=== PATIENT | male | born 1950 | race Caucasian/White ===

== ENCOUNTER 2016-10-06 12:59 | Observation (INO) | payer MEDICARE ==
--- NOTE | 2016-10-06 13:34 | ED ---
General Adult HPI - General Chief complaint: Chest Pain Stated complaint: Chest Pain Time Seen by Provider: 10/06/16 13:08 Source: patient, RN notes reviewed, old records reviewed Mode of arrival: wheelchair Limitations: no limitations - History of Present Illness Initial comments: This is a 66-year-old male here for evaluation. Patient is presents today for evaluation of chest pain. Patient does have strong family history of heart disease concern for heart attack. Patient admits to some sweating but he states the room just feels hot. No significant shortness of breath this time. Patient has history of high cholesterol diabetes CAD and hypertension. Patient still complaining of chest pain at this time. Pain is continued, pressure and chest. Mild hand numbness bilaterally. Patient denies any other neurological complaints. - Related Data Allergies Allergy/AdvReac Type Severity Reaction Status Date / Time atorvastatin [From Lipitor] Allergy Unknown Verified 10/06/16 14:10 Review of Systems ROS Statement: Those systems with pertinent positive or pertinent negative responses have been documented in the HPI. ROS Other: All systems not noted in ROS Statement are negative. Past Medical History Past Medical History: Coronary Artery Disease (CAD), Diabetes Mellitus, Hypertension History of Any Multi-Drug Resistant Organisms: None Reported Past Surgical History: Coronary Bypass/CABG Additional Past Surgical History / Comment(s): right hand surg Past Psychological History: No Psychological Hx Reported Smoking Status: Former smoker Past Alcohol Use History: Occasional Past Drug Use History: None Reported General Exam Limitations: no limitations General appearance: alert, in no apparent distress, anxious Head exam: Present: atraumatic, normocephalic, normal inspection Eye exam: Present: normal appearance, PERRL, EOMI. Absent: scleral icterus, conjunctival injection, periorbital swelling ENT exam: Present: normal exam, mucous membranes moist Neck exam: Present: normal inspection. Absent: tenderness, meningismus, lymphadenopathy Respiratory exam: Present: normal lung sounds bilaterally. Absent: respiratory distress, wheezes, rales, rhonchi, stridor Cardiovascular Exam: Present: regular rate, normal rhythm, normal heart sounds. Absent: systolic murmur, diastolic murmur, rubs, gallop, clicks GI/Abdominal exam: Present: soft, normal bowel sounds. Absent: distended, tenderness, guarding, rebound, rigid Extremities exam: Present: normal inspection, full ROM, normal capillary refill. Absent: tenderness, pedal edema, joint swelling, calf tenderness Back exam: Present: normal inspection Neurological exam: Present: alert, oriented X3, CN II-XII intact Psychiatric exam: Present: normal affect, normal mood Skin exam: Present: warm, dry, intact, normal color. Absent: rash Course Vital Signs 10/06/16 13:07 Temperature 100.2 F H Pulse Rate 81 Respiratory 18 Rate Blood Pressure 161/75 O2 Sat by Pulse 98 Oximetry - Reevaluation(s) Reevaluation #1: 10/06/16 14:13 pt feeling better but still with chest pain EKG Findings - EKG Comments: EKG Findings:: EKG shows normal sinus or mastoid I, CA 202, QRS 110, QTc 440 Medical Decision Making - Medical Decision Making Physical male here for evaluation. History of family strong family history of heart disease, high blood pressure cholesterol remote smoking, patient does have chest pain today, so with pressure in his chest heaviness on his chest diaphoresis. Patient continua chest pain at this time. Patient EKG and troponin are negative, will be admitted for cardiac observation, anticoagulation - Radiology Data Radiology results: report reviewed (CXR is negative for acute disease), image reviewed Critical Care Time Critical Care Time: Yes Total Critical Care Time: 31 Disposition Clinical Impression: Chest pain Disposition: ADMITTED IP TO THIS HOSP Condition: Undetermined Instructions: Chest Pain (ED) Referrals: José Miguel Gordon DO [Primary Care Provider] - 1-2 days
[2016-10-06] MEDS ORDERED: HEPARIN SODIUM,PORCINE 5,000 UNIT/ML 1 ML VIAL IV PRN (14:11)
[2016-10-06] MEDS ORDERED: ACETAMINOPHEN TAB 500 MG TAB PO STA (14:11)
[2016-10-06] MEDS ORDERED: MORPHINE SULFATE 4 MG/ML SYRINGE IV PRN (14:11)
[2016-10-06] MEDS ORDERED: HEPARIN SODIUM,PORCINE 5,000 UNIT/ML 1 ML VIAL IV ONE (14:11)
[2016-10-06] MEDS ORDERED: IBUPROFEN 800 MG TAB PO STA (14:11)
[2016-10-06] MEDS ORDERED: NITROGLYCERIN SL TABS 0.4 MG TAB SUBLINGUAL PRN (14:11)
[2016-10-06] MEDS ORDERED: ASPIRIN 81 MG CHEW PO STA (14:11)
[2016-10-06 14:17] LABS: Basophils # (A) 0.1 k/uL (0-0.2); Basophils % (A) 1 %; CH 31.7; CHCM 34.6; Eosinophils # (A) 0.1 k/uL (0-0.7); Eosinophils % (A) 1 %; HCT 44.9 % (39.0-53.0); HGB 15.6 gm/dL (13.0-17.5); Luc % (Auto) 3; Lymphocytes # (A) 1.2 k/uL (1.0-4.8); Lymphocytes % (A) 17 %; MCH 31.8 pg (25.0-35.0); MCHC 34.6 g/dL (31.0-37.0); MCV 91.9 fL (80.0-100.0); Mean Platelet Volume 7.1; Monocytes # (A) 0.6 k/uL (0-1.0); Monocytes % (A) 8 %; Neutrophils # (A) 5.3 k/uL (1.3-7.7); Neutrophils % (A) 72 %; RBC 4.89 m/uL (4.30-5.90); RDW 13.1 % (11.5-15.5); WBC 7.4 k/uL (3.8-10.6); WBC (Perox) 7.03
[2016-10-06 14:29] LABS: ALT 31 U/L (21-72); AST 21 U/L (17-59); Alkaline Phosphatase 69 U/L (38-126); Anion Gap 15 mmol/L; Blood Urea Nitrogen 28 mg/dL (9-20); Calcium 9.3 mg/dL (8.4-10.2); Carbon Dioxide 26 mmol/L (22-30); Chloride 98 mmol/L (98-107); Glucose 137 mg/dL (74-99); Magnesium 1.3 mg/dL (1.6-2.3); Non-African American GFR(MDRD) 55 (>60 ml/min/1.73 sqM); Partial Thromboplastin Time 23.1 sec (22.0-30.0); Sodium 139 mmol/L (137-145); Total Bilirubin 0.7 mg/dL (0.2-1.3); Total Protein 7.5 g/dL (6.3-8.2)
[2016-10-06] MEDS: HEPARIN SODIUM,PORCINE/D5W PMX 25,000 UNIT in DEXTROSE/WATER 1 500ML.BAG IV SCH (14:32)
--- NOTE | 2016-10-06 14:34 | XR ---
EXAMINATION TYPE: XR chest 2V DATE OF EXAM: 10/06/2016 2:28 PM COMPARISON: Prior chest x-ray June 14, 2012. HISTORY: Chest pain and arm tingling and weakness today. TECHNIQUE: Frontal and lateral views of the chest are obtained. FINDINGS: Sternal wires and mediastinal clips are now present. There is no focal air space opacity, p leural effusion, or pneumothorax seen. The cardiac silhouette size is within normal limits. The os seous structures are intact. IMPRESSION: No acute cardiopulmonary process. Interval post CABG changes noted.
[2016-10-06] MEDS: SODIUM CHLORIDE 0.9% 1,000 ML IV SCH ×2 (14:37→23:33)
[2016-10-06 14:47] LABS: Creatine Kinase 72 U/L (55-170)
[2016-10-06 15:01] LABS: Creatine Kinase MB 0.6 ng/mL (0.0-2.4); Troponin I <0.012 ng/mL (0.000-0.034)
[2016-10-06] MEDS: MAGNESIUM SULFATE-D5W PMX 1 GM in DEXTROSE/WATER 1 100ML.BAG IVPB SCH ×2 (15:14→16:36)
[2016-10-06] MEDS ORDERED: MAGNESIUM SULFATE-D5W PMX 1 GM in DEXTROSE/WATER 1 100ML.BAG IVPB SCH (16:15)
[2016-10-06 16:49] VITALS: BMI 32.7
[2016-10-06 17:08] LABS: Glucose,Whole Blood 136 mg/dL (75-99)
--- NOTE | 2016-10-06 18:04 | HP ---
DATE OF ADMISSION: Patient is a 66-year-old who came in with complaints of chest pain which was a pressure-like sensation which started earlier today morning when he was walking to [facility]. It lasted about 2 minutes, relieved with rest. Patient had a similar episode when he was walking in the house, which also was relieved in 2 to 3 minutes. Patient felt both his arms were weak. There was no other radiation apart from that. Patient denied any diaphoresis, denied any nausea or lightheadedness. Patient denied any shortness of breath. Patient has a significant history of coronary artery disease in the past, CABG in the past. Patient's chest pain is non-pleuritic, not associated with food. Patient had a couple of similar episodes here as well. At that time he did not receive any sublingual nitroglycerin; his symptoms improved slowly. Patient checked his blood pressure at home yesterday when he had a second episode of chest pain. At that time it was in the 140s systolic. It came down into 80s systolic, he says; it was 80/60, which made him concerned, and he came to the hospital. Patient denied any fever or chills. Patient denied any dysuria, coughing. ALLERGIES: ATORVASTATIN. REVIEW OF SYSTEMS: CONSTITUTIONAL: No fever, no malaise, no fatigue. HEENT: No recent visual problems or hearing problems. Denied any sore throat. CARDIOVASCULAR: As described in HPI. PULMONARY: No shortness of breath, no cough, no hemoptysis. GASTROINTESTINAL: No diarrhea, no nausea, no vomiting, no abdominal pain. Normoactive bowel sounds. NEUROLOGICAL: No headaches, no weakness, no numbness. HEMATOLOGICAL: Denies any bleeding or petechiae. GENITOURINARY: Denies any burning micturition, frequency, or urgency. MUSCULOSKELETAL/RHEUMATOLOGICAL: Denies any joint pain, swelling, or any muscle pain. ENDOCRINE: Denies any polyuria or polydipsia. The rest of the 14 point review of systems is negative. Past medical history is significant for: 1. Coronary artery disease. 2. Diabetes mellitus. 3. Hypertension. 4. CABG in the past. SOCIAL HISTORY: Former smoker. Quit smoking years ago. Denied any alcohol abuse or any drug abuse. FAMILY HISTORY: Significant for coronary artery disease in the family. Denied any premature coronary artery disease. Home medications include: 1. Metformin. 2. Tamsulosin. 3. Metoprolol. 4. Loratadine. 5. Lisinopril hydrochlorothiazide. 6. Insulin NPH 70/30. 7. Plavix. 8. Aspirin. PHYSICAL EXAMINATION: GENERAL: Alert and oriented x3. Obese. HEENT: Pupils are round and equally reacting to light. EOMI. No scleral icterus. No conjunctival pallor. Normocephalic, atraumatic. No pharyngeal erythema. No thyromegaly. CARDIOVASCULAR: S1 and S2 present. No murmurs, rubs, or gallops. PULMONARY: Chest is clear to auscultation, no wheezing or crackles. ABDOMEN: Soft, nontender, nondistended, normoactive bowel sounds. No palpable organomegaly. MUSCULOSKELETAL: No joint swelling or deformity. EXTREMITIES: No cyanosis, clubbing, or pedal edema. NEUROLOGICAL: Gross neurological examination did not reveal any focal deficits. SKIN: No rashes. LABORATORY DATA: CBC, CMP are abnormal for elevated creatinine of 1.3. I do not know his baseline creatinine. Magnesium is low, which will be supplemented. Chest x-ray did not show any significant abnormality. EKG showed some old ischemic changes. ASSESSMENT AND PLAN: 1. Chest pain. Patient does have some typical features of chest pain. Considering his previous significant myocardial infarction history, will get Cardiology to evaluate the patient. Will let them decide about cardiac catheterization. 2. Diabetes mellitus. Patient will be n.p.o., because of which I will cut down the 70/30 to 20 units instead of 30 units. Will monitor the blood sugars and metformin will be held, as patient may possibly go for cardiac catheterization. 3. Hypertension. His blood pressure was low at home; and also because of the renal dysfunction and possibility of cardiac catheterization, I will hold off on the diuretic and LOREN inhibitor at this point of time. 4. History of coronary artery disease. Continue with beta jose and statin. 5. Hyperlipidemia. 6. Morbid obesity. Counseling was provided. Cardiology will evaluate the patient.
[2016-10-06] MEDS ORDERED: PANTOPRAZOLE 40 MG TABLET PO STA (19:51)
[2016-10-06 20:15] LABS: Glucose,Whole Blood 141 mg/dL (75-99)
[2016-10-06 20:38] LABS: Creatine Kinase 72 U/L (55-170)
[2016-10-06] MEDS: INSULIN NPH/REG INSULIN 70/30 300 UNIT/3 ML VIAL SQ SCH (20:50)
[2016-10-06 20:51] LABS: Creatine Kinase MB 0.7 ng/mL (0.0-2.4); Troponin I <0.012 ng/mL (0.000-0.034)
[2016-10-06] MEDS: LISINOPRIL-HCTZ 20-12.5 MG 1 EACH TAB PO SCH (20:51)
[2016-10-06] MEDS ORDERED: TAMSULOSIN 0.4 MG CAP.ER.24H PO SCH (21:00)
[2016-10-06] MEDS ORDERED: METOPROLOL TARTRATE 50 MG TAB PO SCH (21:00)
[2016-10-06 21:30] LABS: Hemoglobin A1C 6.7 % (4.2-6.1)
[2016-10-07 03:21] LABS: Mean Platelet Volume 6.8
[2016-10-07 03:36] LABS: Cholesterol 118 mg/dL (<200); HDL Cholesterol 33 mg/dL (40-60); Triglycerides 121 mg/dL (<150)
[2016-10-07 03:45] LABS: Creatine Kinase 71 U/L (55-170)
[2016-10-07 03:59] LABS: Creatine Kinase MB 0.7 ng/mL (0.0-2.4); Troponin I <0.012 ng/mL (0.000-0.034)
[2016-10-07 06:36] LABS: Glucose,Whole Blood 152 mg/dL (75-99)
[2016-10-07] MEDS ORDERED: PANTOPRAZOLE 40 MG TABLET PO SCH (07:30)
--- NOTE | 2016-10-07 07:35 | P.CRDCN ---
History of Present Illness Consult date: 10/07/16 Chief complaint: Chest discomfort History of present illness: This is a pleasant 66-year-old gentleman with a past medical history significant for CAD and status post coronary artery bypass grafting [facility] [place] with unknown details at this point, diabetes, hypertension, dyslipidemia, presented to the emergency room complaining of chest discomfort. The patient was walking to [employer] yesterday when he started experiencing chest discomfort and once he stopped the discomfort went away. He had similar episode a few days before. The discomfort was in the chest and was radiating to the arms as well. He denies having any shortness of breath, dizziness or lightheadedness, sweating , or syncope. The cardiac enzymes were checked and came in to be unremarkable. The EKG showed sinus rhythm with nonspecific changes in the inferior leads. During the hospitalization, he was experiencing cardiac arrhythmia in the term off second-degree type I. He is on metoprolol. I recommended proceeding with heart catheterization in view of the classical nature of his symptoms which is unstable angina. The patient would like to be discharged home and have the procedure done at [place] after he called his senior tax specialist this coming Sunday. I told him that is probably a bit and safe for you to go home at this point. Also I would cut down the dose of metoprolol in view of the AV block. Past Medical History Past Medical History: Coronary Artery Disease (CAD), Diabetes Mellitus, Hyperlipidemia, Hypertension Additional Past Medical History / Comment(s): exposed to agent orange History of Any Multi-Drug Resistant Organisms: None Reported Past Surgical History: Coronary Bypass/CABG Additional Past Surgical History / Comment(s): right hand surg, right cartoid Past Anesthesia/Blood Transfusion Reactions: No Reported Reaction Past Psychological History: No Psychological Hx Reported Smoking Status: Former smoker Past Alcohol Use History: Occasional Past Drug Use History: None Reported - Past Family History Father Additional Family Medical History / Comment(s): of massive heart attack at age 63 Medications and Allergies Home Medications Medication Instructions Recorded Confirmed Type Aspirin EC [Ecotrin Low Dose] 81 mg PO QAM 10/06/16 10/06/16 History Clopidogrel [Plavix] 75 mg PO QAM 10/06/16 10/06/16 History Insulin NPH Hum/Reg Insulin Hm 30 unit SQ BID 10/06/16 10/06/16 History [NovoLIN 70-30 100 UNIT/ML VIAL] Lisinopril-Hctz 20-12.5 mg 1 tab PO BID 10/06/16 10/06/16 History [Zestoretic 20-12.5] Loratadine [Claritin] 10 mg PO QAM 10/06/16 10/06/16 History Metoprolol Tartrate [Lopressor] 50 mg PO BID 10/06/16 10/06/16 History Omeprazole 20 mg PO QAM 10/06/16 10/06/16 History Rosuvastatin [Crestor] 10 mg PO QAM 10/06/16 10/06/16 History Sennosides/Docusate Sodium 1 tab PO QAM 10/06/16 10/06/16 History [Rozina-Colace Tablet] Tamsulosin HCl [Flomax] 0.4 mg PO HS 10/06/16 10/06/16 History metFORMIN HCL 1,000 mg PO BID 10/06/16 10/06/16 History Allergies Allergy/AdvReac Type Severity Reaction Status Date / Time atorvastatin [From Lipitor] Allergy Unknown Verified 10/06/16 14:32 Physical Exam Vitals: Vital Signs Temp Pulse Pulse Resp BP BP Pulse Ox 10/07/16 04:00 75 18 10/07/16 03:55 97.9 F 75 18 104/68 91 L 10/07/16 00:00 66 18 141/77 96 10/06/16 20:00 98.1 F 75 18 190/85 96 10/06/16 14:39 97.8 F 70 16 163/71 97 Intake and Output 10/06/16 10/07/16 10/07/16 22:59 06:59 14:59 Intake Total 1210.268 563.415 Balance 1210.268 563.415 Intake: IV 80 208 Heparin Sodium,Porcine/ 80 208 D5w Pmx 25,000 unit In Dextrose/Water 1 500ml. bag @ 10.02 UNITS/KG/HR 19.99 mls/hr IV .Q24H [facility] Rx#:[id number] Intake, IV Titration 530.268 355.415 Amount Heparin Sodium,Porcine/ 130.268 195.415 D5w Pmx 25,000 unit In Dextrose/Water 1 500ml. bag @ 10.02 UNITS/KG/HR 19.99 mls/hr IV .Q24H [facility] Rx#:[id number] Sodium Chloride 0.9% 1, 400 160 000 ml @ 100 mls/hr IV . Q10H [facility] Rx#:[id number] Oral 600 Other: Voiding Method Toilet Toilet # Voids 2 2 Weight 100.5 kg - Constitutional General appearance: no acute distress - Respiratory Respiratory: bilateral: CTA - Cardiovascular Rhythm: regular Heart sounds: normal: S1, S2 Abnormal Heart Sounds: systolic murmur Results 10/07/16 03:01 10/06/16 14:00 Cardiac Enzymes 10/06/16 10/07/16 Range/Units 20:04 03:01 CK-MB (CK-2) 0.7 0.7 (0.0-2.4) ng/mL Troponin I <0.012 <0.012 (0.000-0.034) ng/mL Coagulation 10/06/16 10/07/16 Range/Units 20:04 03:01 APTT 29.6 31.5 H (22.0-30.0) sec Lipids 10/07/16 Range/Units 03:01 Triglycerides 121 (<150) mg/dL Cholesterol 118 (<200) mg/dL HDL Cholesterol 33 L (40-60) mg/dL CBC 10/07/16 Range/Units 03:01 Plt Count 194 (150-450) k/uL Current Medications Generic Name Dose Route Start Last Admin Trade Name Freq PRN Reason Stop Dose Admin Aspirin 81 mg 10/07/16 09:00 Aspirin PO DAILY [facility] Clopidogrel Bisulfate 75 mg 10/07/16 09:00 Plavix PO DAILY [facility] Lisinopril/HCTZ 1 each 10/06/16 21:00 10/06/16 20:51 Zestoretic 20-12.5 PO 1 each BID [facility] Administration Heparin Sodium (Porcine) 0 unit 10/06/16 14:11 Heparin IV Q6HR PRN Low PTT Protocol Heparin Sodium/Dextrose 25,000 500 mls @ 19.99 mls/hr 10/06/16 14:15 04:35 unit/ IV Solution IV 16 units/kg/hr .Q24H [facility] 31.93 mls/hr Protocol Titration 10.02 UNITS/KG/HR Sodium Chloride 1,000 mls @ 100 mls/hr 10/06/16 14:15 10/06/16 23:33 Saline 0.9% IV 100 mls/hr .Q10H [facility] Administration Insulin Human Isoph/Insulin Regular 20 unit 10/06/16 21:00 10/06/16 20:50 Humulin 70/30 Vial SQ 20 unit BID [facility] Administration Loratadine 10 mg 10/07/16 09:00 Claritin PO QAM [facility] Metoprolol Tartrate 50 mg 10/06/16 21:00 10/06/16 20:51 Lopressor PO 50 mg BID [facility] Administration Morphine Sulfate 4 mg 10/06/16 14:11 Morphine Sulfate (Inj) IV Q4HR PRN Chest Pain Nitroglycerin 0.4 mg 10/06/16 14:11 Nitrostat SUBLINGUAL Q5M PRN Chest Pain Non-Formulary Medication 10 mg 10/07/16 09:00 Rosuvastatin PO QAM [facility] Pantoprazole Sodium 40 mg 10/07/16 07:30 Protonix PO AC-BRKFST [facility] Senna/Docusate Sodium 1 each 10/07/16 09:00 Senokot-S PO DAILY [facility] Tamsulosin HCl 0.4 mg 10/06/16 21:00 10/06/16 20:51 Flomax PO 0.4 mg HS [facility] Administration Intake and Output 10/06/16 10/07/16 10/07/16 22:59 06:59 14:59 Intake Total 1210.268 563.415 Balance 1210.268 563.415 Intake: IV 80 208 Heparin Sodium,Porcine/ 80 208 D5w Pmx 25,000 unit In Dextrose/Water 1 500ml. bag @ 10.02 UNITS/KG/HR 19.99 mls/hr IV .Q24H [facility] Rx#:[id number] Intake, IV Titration 530.268 355.415 Amount Heparin Sodium,Porcine/ 130.268 195.415 D5w Pmx 25,000 unit In Dextrose/Water 1 500ml. bag @ 10.02 UNITS/KG/HR 19.99 mls/hr IV .Q24H [facility] Rx#:[id number] Sodium Chloride 0.9% 1, 400 160 000 ml @ 100 mls/hr IV . Q10H [facility] Rx#:[id number] Oral 600 Other: Voiding Method Toilet Toilet # Voids 2 2 Weight 100.5 kg 10/07/16 03:01 Assessment and Plan Plan: Assessment Unstable angina Known CAD and prior CABG 1 Diabetes Hypertension Dyslipidemia Plan I recommended proceeding with heart catheterization Continue the current medical treatment Cutdown the dose of metoprolol Follow-up with the patient
[2016-10-07 07:44] VITALS: RESP 16
[2016-10-07] MEDS: INSULIN NPH/REG INSULIN 70/30 300 UNIT/3 ML VIAL SQ SCH (08:06)
[2016-10-07] MEDS: LISINOPRIL-HCTZ 20-12.5 MG 1 EACH TAB PO SCH (08:06)
[2016-10-07] MEDS: HEPARIN SODIUM,PORCINE/D5W PMX 25,000 UNIT in DEXTROSE/WATER 1 500ML.BAG IV SCH (08:14)
[2016-10-07] MEDS ORDERED: LORATADINE 10 MG TAB PO SCH (09:00)
[2016-10-07] MEDS ORDERED: ASPIRIN 325 MG TAB PO SCH (09:00)
[2016-10-07] MEDS ORDERED: NON-FORMULARY DRUG (Rosuvastatin 10 MG) PO SCH (09:00)
[2016-10-07] MEDS ORDERED: METOPROLOL TARTRATE 25 MG TAB PO SCH (09:00)
[2016-10-07] MEDS ORDERED: SENNOSIDES-DOCUSATE SODIUM 1 EACH TAB PO SCH (09:00)
[2016-10-07] MEDS ORDERED: ASPIRIN 81 MG CHEW PO SCH (09:00)
[2016-10-07] MEDS ORDERED: TAMSULOSIN 0.4 MG CAP.ER.24H PO SCH (09:00)
[2016-10-07] MEDS ORDERED: CLOPIDOGREL 75 MG TAB PO SCH (09:00)
[2016-10-07 12:10] LABS: Glucose,Whole Blood 184 mg/dL (75-99)
[2016-10-07] MEDS: SODIUM CHLORIDE 0.9% 1,000 ML IV SCH (12:33)
[2016-10-07 15:39] VITALS: BP 124/68; PULSE 79; TEMP 97.2
--- NOTE | 2016-10-07 18:25 | PN ---
This patient is a 66-year-old who came in with chest pain with typical features. Will need cardiac catheterization as per cardiology recommendations, although patient wanted to go to [facility] to get this cardiac catheterization followup with his primary head paper tester at [facility], which is reasonable. I am unable to transfer him to [facility] at this point of time. Patient's blood pressure was also low, and patient wanted to leave AMA to see his doctor on Sunday. In this scenario, I asked him to cut down his antihypertensive medication to half and also hold off on metformin until he sees the physician in [facility], as the cardiac catheterization does not need to be held for metformin purposes. REVIEW OF SYSTEMS: CARDIOVASCULAR: No chest pain, no orthopnea, no PND, no palpitations. PULMONARY: Denied any shortness of breath. No cough or hemoptysis. GASTROINTESTINAL: No diarrhea, nausea or vomiting. No abdominal pain. Normoactive bowel sounds. NEUROLOGIC: No headaches, no weakness, no numbness. Medications were reviewed. PHYSICAL EXAMINATION: VITAL SIGNS: Temperature 97.2, pulse of 79, respiratory rate of 16, blood pressure 124/68. Saturating at 97% on room air. GENERAL: The patient is alert and oriented x3, not in any acute distress. Well developed, well nourished. HEENT: Pupils are round and equally reacting to light. EOMI. No scleral icterus. No conjunctival pallor. Normocephalic, atraumatic. No pharyngeal erythema. No thyromegaly. CARDIOVASCULAR: S1 and S2 present. No murmurs, rubs, or gallops. PULMONARY: Chest is clear to auscultation, no wheezing or crackles. ABDOMEN: Soft, nontender, nondistended, normoactive bowel sounds. No palpable organomegaly. MUSCULOSKELETAL: No joint swelling or deformity. EXTREMITIES: No cyanosis, clubbing, or pedal edema. NEUROLOGICAL: Gross neurological examination did not reveal any focal deficits. SKIN: No rashes. FINAL DIAGNOSES: 1. Chest pain with some typical features. Rule out unstable angina. Management as mentioned above. 2. Type 2 diabetes mellitus. Will cut down on 70/30 because of possibility of n.p.o. 3. Hypertension. Management as mentioned in the interval history. 4. Coronary artery disease with coronary artery bypass graft in the past. 5. Hyperlipidemia. 6. Obesity. PLAN: As mentioned in the interval history.
--- NOTE | 2016-10-31 10:42 | DS ---
DATE OF ADMISSION: 10/06/2016 DATE OF DISCHARGE: 10/07/2016 DATE OF SERVICE: 10/07/2016 Patient left AGAINST MEDICAL ADVICE.
== END 2016-10-07 16:48 | disposition left against medical advice (07) ==
LOC: EC 12:59 → 3OBS 14:11 → 3SUR 18:57
PROVIDERS: ADMIT Hospitalist; ATTEND Hospitalist
DX: R07.89 Other chest pain (principal); R53.1 Weakness; E11.9 Type 2 diabetes mellitus without complications; N28.9 Disorder of kidney and ureter, unspecified; I10 Essential (primary) hypertension; I25.10 Atherosclerotic heart disease of native coronary artery without angina pectoris; E66.01 Morbid (severe) obesity due to excess calories; Z68.32 Body mass index [BMI] 32.0-32.9, adult; R03.1 Nonspecific low blood-pressure reading; E78.00 Pure hypercholesterolemia, unspecified; E78.5 Hyperlipidemia, unspecified; I25.2 Old myocardial infarction; I44.30 Unspecified atrioventricular block; Z82.49 Family history of ischemic heart disease and other diseases of the circulatory system; Z88.8 Allergy status to other drugs, medicaments and biological substances; Z95.1 Presence of aortocoronary bypass graft; Z87.891 Personal history of nicotine dependence; I49.9 Cardiac arrhythmia, unspecified; Z79.82 Long term (current) use of aspirin; Z79.02 Long term (current) use of antithrombotics/antiplatelets; Z79.4 Long term (current) use of insulin; Z79.899 Other long term (current) drug therapy; Z79.84 Long term (current) use of oral hypoglycemic drugs
CPT/HCPCS: 96365; 96376; 99291; 36415; 94760; 93005; 80061; 80053; 83036; 82550 ×2; 82553 ×2; 83690; 83735; 84484 ×2; 85025; 85049; 85610; 85730 ×2; 71020; G0378 ×2; J1644 ×3; J3475; 96366

== ENCOUNTER 2020-08-13 07:09 | Day surgery (SDC) | payer MEDICARE ==
[2020-08-09 15:51] VITALS: BMI 34.0
[~2020-08-13 07:09] MED LIST: LACTATED RINGERS 1,000 ML IV SCH
[2020-08-13 07:40] VITALS: RESP 16; TEMP 98.8
[2020-08-13 07:53] LABS: Glucose,Whole Blood 189 mg/dL (75-99)
[2020-08-13] MEDS ORDERED: PROPOFOL 10 MG/ML 20 ML VIAL IV ONE (08:33)
--- NOTE | 2020-08-13 08:36 | P.GSHP ---
History of Present Illness H&P Date: 08/13/20 Chief Complaint: History of colon polyps This 70-year-old male who presents today for colonoscopy. Patient has previous history: Polyps. He also known history of diverticulosis. Past Medical History Past Medical History: Coronary Artery Disease (CAD), Diabetes Mellitus, Hyperlipidemia, Hypertension, Osteoarthritis (OA) Additional Past Medical History / Comment(s): Exposed to agent orange. OA IN HIPS, DIFFICULTY WALKING DISTANCES. Light- headed when standing @ times. Bursitis L hip. History of Any Multi-Drug Resistant Organisms: None Reported Past Surgical History: Coronary Bypass/CABG, Heart Catheterization, Orthopedic Surgery Additional Past Surgical History / Comment(s): Right hand surg. Right Cartoid ENDARTERECTOMY. 06/2015 SINGLE CABG, STILL HAS 2 BLOCKAGES. Past Anesthesia/Blood Transfusion Reactions: No Reported Reaction Smoking Status: Former smoker - Past Family History Father Family Medical History: Cancer, Myocardial Infarction ([place]) Additional Family Medical History / Comment(s): of massive heart attack at age 63, colon. Mother Family Medical History: Cancer Medications and Allergies Home Medications Medication Instructions Recorded Confirmed Type Aspirin EC [Ecotrin Low Dose] 81 mg PO QAM 10/06/16 08/13/20 History Insulin NPH Hum/Reg Insulin Hm 44 unit SQ BID 10/06/16 08/13/20 History [NovoLIN 70-30 100 UNIT/ML VIAL] Lisinopril-Hctz 20-12.5 mg 1 tab PO BID 10/06/16 08/13/20 History [Zestoretic 20-12.5] Loratadine [Claritin] 10 mg PO QAM 10/06/16 08/13/20 History Metoprolol Tartrate [Lopressor] 50 mg PO BID 10/06/16 08/13/20 History Tamsulosin HCl [Flomax] 0.4 mg PO HS 10/06/16 08/13/20 History metFORMIN HCL 1,000 mg PO BID 10/06/16 08/13/20 History Acetaminophen [Tylenol Extra 1,000 mg PO Q6H PRN 04/12/17 08/13/20 History Strength] Rosuvastatin [Crestor] 10 mg PO DAILY 04/12/17 08/13/20 History Allergies Allergy/AdvReac Type Severity Reaction Status Date / Time atorvastatin [From Lipitor] Allergy WEAKNESS Verified 08/13/20 07:42 IN ARMS, MUSCLES Surgical - Exam Vital Signs Temp Pulse Resp BP Pulse Ox 98.8 F 66 16 173/91 93 L 08/13/20 07:39 08/13/20 07:39 08/13/20 07:39 08/13/20 07:39 08/13/20 07:39 - General well developed, well nourished, no distress - Eyes PERRL - ENT normal pinna - Neck no masses - Respiratory normal expansion - Cardiovascular Rhythm: regular - Abdomen Abdomen: soft, non tender Results - Labs Abnormal Lab Results - Last 24 Hours (Table) 08/13/20 Range/Units 07:51 POC Glucose (mg/dL) 189 H (75-99) mg/dL Assessment and Plan Assessment: History of colon polyps, diverticulosis. We'll perform colonoscopy.
--- NOTE | 2020-08-13 08:49 | P.OP ---
Date of Procedure: 08/13/20 Preoperative Diagnosis: History of colon polyps Postoperative Diagnosis: Diverticulosis Procedure(s) Performed: Colonoscopy Anesthesia: MAC Surgeon: Sam Acosta Pathology: none sent Condition: stable Disposition: PACU Description of Procedure: The patient's placed on the endoscopy table in the lateral position he received IV sedation. Digital rectal exam was performed which revealed no abnormalities. The flexible colonoscope was then placed patient anus passed throughout the entire colon. The ileocecal valve umbilicus. The cecum ascending and transverse colon appeared normal. The descending and sigmoid colon appeared normal except for scattered diverticula. Scope was then brought back the rectum this appeared normal. Scope was withdrawn for patient.
[2020-08-13 09:08] LABS: Glucose,Whole Blood 177 mg/dL (75-99)
[2020-08-13 09:11] VITALS: BP 120/81; PULSE 63
== END 2020-08-13 09:47 | disposition home or self-care (01) ==
LOC: ORWHC2ENDO 07:09
PROVIDERS: ATTEND Surgery
DX: Z12.11 Encounter for screening for malignant neoplasm of colon (principal); K57.30 Diverticulosis of large intestine without perforation or abscess without bleeding; Z86.010 Personal history of colon polyps; I25.10 Atherosclerotic heart disease of native coronary artery without angina pectoris; M16.10 Unilateral primary osteoarthritis, unspecified hip; I10 Essential (primary) hypertension; E11.9 Type 2 diabetes mellitus without complications; E78.5 Hyperlipidemia, unspecified; Z77.29 Contact with and (suspected) exposure to other hazardous substances; M71.9 Bursopathy, unspecified; Z87.891 Personal history of nicotine dependence; Z95.1 Presence of aortocoronary bypass graft; I25.2 Old myocardial infarction; Z79.82 Long term (current) use of aspirin; Z79.4 Long term (current) use of insulin; Z79.899 Other long term (current) drug therapy; Z88.8 Allergy status to other drugs, medicaments and biological substances
CPT/HCPCS: G0121; J2704; 45378

== ENCOUNTER → 2023-07-16 | Outpatient (CLI) | payer OTHER ==
--- NOTE | 2023-07-16 13:12 | US ---
EXAMINATION TYPE: US extremity non vasc mass RT DATE OF EXAM: 07/16/2023 COMPARISON: NONE CLINICAL INDICATION: Male, 72 years old with history of M67.471 GANGLION, RIGHT ANKLE AND FOOT; Pt st ates palpable lump right posterior foot at arch x few years. Has recently become painful. TECHNIQUE: Right foot FINDINGS: Solid to complex lesion right posterior foot at arch where pt feels palpable= 4.3 x 1.1 x 1.6 cm. Vascularity is visualized within. IMPRESSION: Heterogenous area in the area of palpable abnormality in the plantar surface of the of t he foot. Given long-standing history finding could represent sequela prior injury and fibrotic tissue . Correlate for signs and symptoms of infection. Consider MRI with IV contrast for further evaluation .
== END | disposition home or self-care (01) ==
LOC: RADUSWWP 11:53
PROVIDERS: ATTEND Podiatrist Foot & Ankle Surgery
DX: M67.471 Ganglion, right ankle and foot (principal); R22.41 Localized swelling, mass and lump, right lower limb

== ENCOUNTER 2024-08-28 09:30 | Day surgery (SDC) | payer MEDICARE, OTHER ==
[2024-08-19 16:31] VITALS: BMI 33.7
[2024-08-28] MEDS: IV FLUID CONTINUATION 1,000 ML IV ONE (10:30)
[2024-08-28] MEDS: LIDOCAINE 1% (10MG/ML) FOR IV START INTRADERMA PRN (10:30)
[2024-08-28] MEDS: LACTATED RINGERS 1,000 ML IV SCH (10:30)
[2024-08-28] MEDS ORDERED: PROPOFOL 10 MG/ML 20 ML VIAL IV ONE (10:38)
[2024-08-28 10:42] VITALS: TEMP 97
--- NOTE | 2024-08-28 10:43 | P.GSHP ---
History of Present Illness H&P Date: 08/28/24 Chief Complaint: Family history of colon cancer Is a 74-year-old male with a strong family history of colon cancer. Patient presents today for colonoscopy. Past Medical History Past Medical History: Coronary Artery Disease (CAD), Diabetes Mellitus, Hyperlipidemia, Hypertension, Osteoarthritis (OA) Additional Past Medical History / Comment(s): Exposed to agent orange. OA IN HIPS, DIFFICULTY WALKING DISTANCES. Light- headed when standing @ times. Bursitis L hip. History of Any Multi-Drug Resistant Organisms: None Reported Past Surgical History: Coronary Bypass/CABG, Heart Catheterization, Orthopedic Surgery Additional Past Surgical History / Comment(s): Right hand surg. Right Cartoid ENDARTERECTOMY. 06/2015 SINGLE CABG-STILL HAS 2 BLOCKAGES. Past Anesthesia/Blood Transfusion Reactions: No Reported Reaction Additional Past Anesthesia/Blood Transfusion Reaction / Comment(s): no reactions to prior blood transfusion Past Psychological History: No Psychological Hx Reported Smoking Status: Former smoker Past Alcohol Use History: Occasional Additional Past Alcohol Use History / Comment(s): SMOKED 12 YEARS, 1 - 1 1/2 PPD, QUIT 1986 Past Drug Use History: None Reported - Past Family History Father Family Medical History: Cancer, Myocardial Infarction (SC) Additional Family Medical History / Comment(s): of massive heart attack at age 63, colon CA. paternal uncle colon and prostate CA Mother Family Medical History: Cancer Additional Family Medical History / Comment(s): colon CA Medications and Allergies Home Medications Medication Instructions Recorded Confirmed Type Aspirin EC [Ecotrin Low Dose] 81 mg PO QAM 10/06/16 08/27/24 History Insulin NPH Hum/Reg Insulin Hm 55 unit SQ BID 10/06/16 08/27/24 History [NovoLIN 70-30 100 UNIT/ML VIAL] Lisinopril-Hctz 20-12.5 mg 1 tab PO BID 10/06/16 08/27/24 History [Zestoretic 20-12.5] Loratadine [Claritin] 10 mg PO QAM 10/06/16 08/27/24 History Metoprolol Tartrate [Lopressor] 50 mg PO BID 10/06/16 08/27/24 History Tamsulosin HCl [Flomax] 0.4 mg PO HS 10/06/16 08/27/24 History metFORMIN HCL [Glucophage] 1,000 mg PO BID 10/06/16 08/27/24 History Acetaminophen [Tylenol Extra 1,000 mg PO Q6H PRN 04/12/17 08/27/24 History Strength] Rosuvastatin [Crestor] 10 mg PO DAILY 04/12/17 08/27/24 History Cinnamon Bark [Cinnamon] 1,000 mg PO BID 08/19/24 08/27/24 History Turmeric Root Extract [Turmeric] 500 mg PO DAILY 08/19/24 08/27/24 History Allergies Allergy/AdvReac Type Severity Reaction Status Date / Time atorvastatin [From Lipitor] Allergy WEAKNESS Verified 08/28/24 10:16 IN ARMS, MUSCLES simvastatin [From Zocor] Allergy WEAKNESS Verified 08/28/24 10:16 Surgical - Exam Vital Signs Temp Pulse Resp BP Pulse Ox 97.0 F L 62 16 160/78 96 08/28/24 10:30 08/28/24 10:30 08/28/24 10:30 08/28/24 10:30 08/28/24 10:30 - General well developed, well nourished, no distress - Eyes PERRL - ENT normal pinna - Neck no masses - Respiratory normal expansion - Cardiovascular Rhythm: regular - Abdomen Abdomen: soft, non tender Assessment and Plan Assessment: Family history of colon cancer. Will perform colonoscopy.
[2024-08-28 10:47] LABS: Glucose,Whole Blood 107 mg/dL (70-110)
--- NOTE | 2024-08-28 10:58 | P.OP ---
Date of Procedure: 08/28/24 Preoperative Diagnosis: Family history of colon cancer Postoperative Diagnosis: Mild diverticulosis Procedure(s) Performed: Colonoscopy Anesthesia: MAC Surgeon: Sam Acosta Pathology: none sent Condition: stable Disposition: PACU Description of Procedure: The patient was placed on the endoscopy table in the lateral position. He received IV sedation. Digital rectal exam was performed. This revealed no abnormalities. The flexible colonoscope was then placed patient anus and passed throughout the entire colon. The ileocecal valve was visualized. The cecum, ascending and transverse colon appeared normal. In the descending sigmoid colon there is a few scattered diverticuli. The scope was then brought back to the rectum this appeared normal. Scope withdrawn for the patient.
[2024-08-28 11:12] LABS: Glucose,Whole Blood 102 mg/dL (70-110)
[2024-08-28 11:18] VITALS: RESP 16
[2024-08-28 11:30] VITALS: BP 134/66; PULSE 58
== END 2024-08-28 11:39 | disposition home or self-care (01) ==
LOC: ORWHC2ENDO 09:30
PROVIDERS: ATTEND Surgery
DX: Z12.11 Encounter for screening for malignant neoplasm of colon (principal); K57.30 Diverticulosis of large intestine without perforation or abscess without bleeding; E11.9 Type 2 diabetes mellitus without complications; E78.5 Hyperlipidemia, unspecified; I10 Essential (primary) hypertension; I25.10 Atherosclerotic heart disease of native coronary artery without angina pectoris; M19.90 Unspecified osteoarthritis, unspecified site; F10.90 Alcohol use, unspecified, uncomplicated; Z80.0 Family history of malignant neoplasm of digestive organs; Z79.4 Long term (current) use of insulin; Z79.84 Long term (current) use of oral hypoglycemic drugs; Z87.891 Personal history of nicotine dependence; Z95.1 Presence of aortocoronary bypass graft; Z79.82 Long term (current) use of aspirin; Z79.899 Other long term (current) drug therapy
CPT/HCPCS: 45378; J2704